=== PATIENT | female | born 1955 ===

== ENCOUNTER 2024-04-18 14:34 | Emergency (ER) | payer MEDICARE, BC ==
[2024-04-18 14:52] LABS: BASOPHILS ABSOLUTE AUTO 0.01 K/uL (0.00-0.20); BASOPHILS PERCENT AUTO 0.1 % (0.0-1.0); EOSINOPHILS ABSOLUTE AUTO 0.14 K/uL (0.00-0.45); EOSINOPHILS PERCENT AUTO 1.7 % (0.0-6.0); HEMATOCRIT 26.7 % (37.0-47.0); HEMOGLOBIN 8.8 g/dL (12.0-16.0); IMMATURE GRAN ABSOLUTE AUTO 0.04 K/uL (0.00-0.05); IMMATURE GRAN PERCENT AUTO 0.5 % (0.0-0.4); LYMPHOCYTES PERCENT AUTO 18.2 % (24.0-44.0); MEAN CORPUSCULAR HEMOGLOBIN 30.9 pg (28.0-32.0); MEAN CORPUSCULAR VOLUME 93.7 fL (83.0-99.0); MEAN PLATELET VOLUME 10.5 fL (9.4-12.3); MONOCYTES ABSOLUTE AUTO 0.62 K/uL (0.00-0.80); MONOCYTES PERCENT AUTO 7.5 % (0.0-8.0); NEUTROPHILS ABSOLUTE AUTO 5.95 K/uL (1.80-7.70); PLATELET COUNT,PLT 267 K/uL (150-400); RED BLOOD CELL COUNT 2.85 M/uL (4.10-5.30); WHITE BLOOD CELL COUNT,WBC 8.26 K/uL (3.9-11.3)
[2024-04-18] MEDS: Oxymetazoline 0.05% Nasal Spray 30 ML Bottle NAS ONE (14:54)
[2024-04-18 15:17] LABS: INR 0.99 (0.86-1.11); PTT,PARTIAL THROMBOPLSTIN TIME 26.4 SEC (23.9-30.7)
[2024-04-18] MEDS: Tranexamic Acid 1,000 MG/10 ML Vial ONE (15:20)
[2024-04-18 15:26] LABS: ALBUMIN 3.8 g/dL (3.4-5.0); BILIRUBIN TOTAL 0.4 mg/dL (0.2-1.0); CALCIUM 8.8 mg/dL (8.5-10.1); CARBON DIOXIDE,CO2 19.5 mmol/L (21.0-32.0); EST CRCL DRUG DOSING (CG) 16.15 mL/min; POTASSIUM,K 5.2 mmol/L (3.5-5.1); PROTEIN TOTAL,TP 7.7 g/dL (6.4-8.2)
== END 2024-04-18 16:43 | disposition home or self-care (01) ==
LOC: MW.ED 14:34
DX: R04.0 Epistaxis (principal); Z79.899 Other long term (current) drug therapy; Z75.8 Other problems related to medical facilities and other health care
CPT/HCPCS: 30901; 36415; 80053; 85025; 85610; 85730; 99284; A9270

== ENCOUNTER 2024-04-21 15:34 | Emergency (ER) | payer MEDICARE, BC | END 2024-04-21 16:24 | disposition home or self-care (01) | LOC: MW.ED 15:34 | DX: Z48.00 Encounter for change or removal of nonsurgical wound dressing (principal); I10 Essential (primary) hypertension; E78.00 Pure hypercholesterolemia, unspecified; E11.9 Type 2 diabetes mellitus without complications; Z79.899 Other long term (current) drug therapy | CPT/HCPCS: 99282 ==